=== PATIENT | male | born 1960 | race Caucasian/White ===

== ENCOUNTER 2024-02-09 04:17 | Inpatient (IN) ==
[2024-02-09] MEDS: cefTRIAXone 2 gm/50 mL D5W 2 GM/50 ML BAG IV ONE (04:49)
[2024-02-09 04:56] LABS: ABS Lymphocytes 0.6 10^3/uL (1.0-4.8); ABS Monocytes 0.2 10^3/uL (0.0-1.1); Eosinophil % 0.1 %; Hematocrit 42.4 % (38-53); Hemoglobin 14.5 g/dL (13.2-16.3); Lymphocyte % 8.3 %; Mean Corpuscular Hemoglobin 32.6 pg (27-33); Mean Corpuscular Hgb Conc 34.3 g/dL (31-36); Mean Corpuscular Volume 95.1 fL (80-97); Platelet Count 197 10^3/uL (150-450); Red Blood Count 4.45 10^6/uL (4.06-5.63); White Blood Count 7.9 10^3/uL (3.6-10.2)
[2024-02-09 05:07] LABS: Activated Partial Thrombo Time 24.5 seconds (26.0-38.0); INR 1.14 (0.83-1.13)
[2024-02-09 05:22] LABS: High Sens Troponin Baseline 15 pg/mL (<20)
[2024-02-09 05:36] LABS: ALT 18 U/L (7-52); Albumin 3.8 g/dL (3.2-5.2); Albumin/Globulin Ratio 1.2 (1-3); Alkaline Phosphatase 56 U/L (35-149); Anion Gap 8 mmol/L (2-16); Blood Urea Nitrogen 24 mg/dL (6-24); CO2 Carbon Dioxide 23 mmol/L (22-32); Calcium 8.4 mg/dL (8.6-10.3); Chloride 105 mmol/L (101-111); Creatinine, Serum 1.37 mg/dL (0.67-1.17); Globulin 3.2 g/dL (2-4); Glucose 111 mg/dL (70-100); Sodium 136 mmol/L (135-145); Total Bilirubin 0.7 mg/dL (0.2-1.0); eGFR CKD-EPI 58.3 (>60)
[2024-02-09] MEDS: Lactated Ringers 1000 ml BAG 1,000 ML IV ONE ×2 (05:42→16:42)
[2024-02-09 05:52] LABS: Urine Appearance Clear; Urine Bilirubin Negative (Negative); Urine Blood Negative (Negative); Urine Color Yellow; Urine Glucose Negative (Negative); Urine Ketones Negative (Negative); Urine Nitrite Negative (Negative); Urine Protein Trace (Negative); Urine Specific Gravity 1.016 (1.002-1.030); Urine Urobilinogen Negative (Negative); Urine pH 6.5 (5.0-8.0)
[2024-02-09 06:21] LABS: High Sensitivity Troponin 1 Hr 15 pg/mL (<20)
[2024-02-09 06:23] LABS: AST Redraw 18 U/L (13-39); Potassium Redraw 3.6 mmol/L (3.5-5.0)
[2024-02-09] MEDS: Morphine 10 MG/ML VIAL (1 ml) IV ONE (07:27)
[2024-02-09] MEDS: Lactated Ringers SEPSIS* BAG 2,190 ML IV ONE (07:47)
[2024-02-09] MEDS: Norepinephrine 4 MG/250mL D5W 4,000 MCG/250 ML BAG IV SCH (10:26)
[2024-02-09] MEDS: Vancomycin 2,000 MG in NS 0.9% 500 ml BAG 500 ML IVPB ONE (10:26)
[2024-02-09] MEDS ORDERED: Morphine 2 MG/ML SYRINGE IV PRN (10:30)
[2024-02-09] MEDS ORDERED: Vancomycin per Pharmacy 1 EA NOTE FOLLOW UP SCH (11:00)
[2024-02-09 11:38] LABS: Magnesium 1.5 mg/dL (1.9-2.7); Phosphorus < 1.0 mg/dL (2.5-5.0)
[2024-02-09] MEDS: Enoxaparin 60 MG/0.6 ML SYR SUBCUT SCH (12:13)
[2024-02-09] MEDS: Hydrocortisone INJ 100 MG/2ML 2 ML VIAL IV ONE (12:13)
[2024-02-09] MEDS: Aspirin EC 81 mg TAB.EC (enteric coated) PO SCH (12:14)
[2024-02-09] MEDS: Potassium & Sodium Phos 250 mg = 1 PACKET PO ONE ×2 (12:28→22:53)
[2024-02-09] MEDS ORDERED: Sulfur Hexaflouride MICROSPHR 25 MG VIAL ONE (12:50)
[2024-02-09 13:16] LABS: Creatine Kinase 130 U/L (10-223)
[2024-02-09] MEDS: Magnesium Sulf 4 GM/100 ML IV 4,000 MG/100 ML BAG IVPB ONE (13:16)
[2024-02-09] MEDS: Sulfur Hexaflouride MICROSPHR 25 MG VIAL IV ONE (13:19)
[2024-02-09] MEDS: Potassium Phosphate IV 30 MMOL in NS 0.9% 250 ml 250 ML IVPB ONE (13:34)
[2024-02-09] MEDS: Clindamycin 900 MG/D5W BAG 900 MG/50 ML BAG IVPB SCH (16:50)
[2024-02-09] MEDS: Lactated Ringers 1000 ml BAG 1,000 ML IV SCH (17:57)
[2024-02-09 19:27] LABS: ABS Monocytes 0.6 10^3/uL (0.0-1.1); ABS Neutrophils 14.4 10^3/uL (1.5-7.6); ABS Nucleated RBC 0.01 10^3/ul; Hematocrit 38.2 % (38-53); Hemoglobin 12.7 g/dL (13.2-16.3); Lymphocyte % 6.3 %; Mean Corpuscular Hemoglobin 32.2 pg (27-33); Mean Corpuscular Hgb Conc 33.4 g/dL (31-36); Mean Corpuscular Volume 96.4 fL (80-97); Mean Platelet Volume 7.8 fL (7.5-11.2); Platelet Count 195 10^3/uL (150-450); Red Blood Count 3.96 10^6/uL (4.06-5.63); Red Cell Distribution Width 14.3 % (12-17)
[2024-02-09] MEDS ORDERED: Hydrocortisone INJ 100 MG/2ML 2 ML VIAL IV SCH (20:00)
[2024-02-09 20:08] LABS: Calcium 7.8 mg/dL (8.6-10.3); Creatinine, Serum 2.63 mg/dL (0.67-1.17); Magnesium 1.9 mg/dL (1.9-2.7); Potassium 5.2 mmol/L (3.5-5.0); eGFR CKD-EPI 26.7 (>60)
[2024-02-09] MEDS: fentaNYL 100 mcg/2 ml 50 MCG/ML VIAL IV SLOW PU PRN (21:55)
[2024-02-09] MEDS: Vancomycin 1,500 MG in NS 0.9% 250 ml 250 ML IVPB SCH (23:08)
[2024-02-09] MEDS: Magnesium Sulfate IV 1GM/100ML 1 GM/100 ML BAG IV ONE (23:08)
[2024-02-10 04:46] LABS: Hematocrit 38.3 % (38-53); Hemoglobin 12.6 g/dL (13.2-16.3); Mean Corpuscular Hemoglobin 31.1 pg (27-33); Mean Corpuscular Hgb Conc 32.8 g/dL (31-36); Mean Platelet Volume 7.6 fL (7.5-11.2); Platelet Count 182 10^3/uL (150-450); Red Blood Count 4.03 10^6/uL (4.06-5.63); Red Cell Distribution Width 14.3 % (12-17); White Blood Count 21.3 10^3/uL (3.6-10.2)
[2024-02-10 05:21] LABS: C Reactive Protein 311.35 mg/L (<8.01); Calcium 7.7 mg/dL (8.6-10.3); Creatinine, Serum 2.78 mg/dL (0.67-1.17); Magnesium 2.1 mg/dL (1.9-2.7); Phosphorus 5.3 mg/dL (2.5-5.0); Potassium 5.3 mmol/L (3.5-5.0); eGFR CKD-EPI 24.9 (>60)
[2024-02-10] MEDS: cefTRIAXone 2 gm/50 mL D5W 2 GM/50 ML BAG IV SCH ×2 (05:56→17:46)
[2024-02-10 06:53] LABS: ABS Lymphocytes 1.2 10^3/uL (1.0-4.8); ABS Monocytes 0.9 10^3/uL (0.0-1.1); ABS Neutrophils 19.2 10^3/uL (1.5-7.6); Eosinophil % 0.1 %; Lymphocyte % 5.8 %
[2024-02-10 06:54] LABS: Anisocytosis 1+; Toxic Granulation 3+
[2024-02-10] MEDS: Lactated Ringers 1000 ml BAG 1,000 ML IV SCH (10:06)
[2024-02-10 12:28] LABS: PCO2 Arterial 35 mmHg (35-45); PO2 Arterial 151 mmHg (80-100)
[2024-02-10] MEDS: Hydrocortisone INJ 100 MG/2ML 2 ML VIAL IV SCH (12:39)
[2024-02-11 07:25] LABS: Hematocrit 35.1 % (38-53); Hemoglobin 11.9 g/dL (13.2-16.3); Mean Corpuscular Hemoglobin 32.2 pg (27-33); Mean Corpuscular Hgb Conc 33.8 g/dL (31-36); Mean Corpuscular Volume 95.3 fL (80-97); Mean Platelet Volume 7.8 fL (7.5-11.2); Platelet Count 132 10^3/uL (150-450); Red Blood Count 3.68 10^6/uL (4.06-5.63); Red Cell Distribution Width 14.4 % (12-17); White Blood Count 18.8 10^3/uL (3.6-10.2)
[2024-02-11 08:00] LABS: Calcium 7.4 mg/dL (8.6-10.3); Creatinine, Serum 1.86 mg/dL (0.67-1.17); Magnesium 2.3 mg/dL (1.9-2.7); Phosphorus 3.2 mg/dL (2.5-5.0); Potassium 4.6 mmol/L (3.5-5.0); Vancomycin Random 11.3 mcg/mL; eGFR CKD-EPI 40.4 (>60)
[2024-02-11 08:02] LABS: ABS Lymphocytes 0.7 10^3/uL (1.0-4.8); ABS Monocytes 0.6 10^3/uL (0.0-1.1); ABS Neutrophils 17.4 10^3/uL (1.5-7.6); ABS Nucleated RBC 0.01 10^3/ul; Lymphocyte % 3.7 %
[2024-02-11 08:27] LABS: C Reactive Protein 438.74 mg/L (<8.01)
[2024-02-11] MEDS: Vancomycin Random Level NOTE FOLLOW UP ONE (09:11)
[2024-02-11] MEDS ORDERED: Vancomycin Trough Check NOTE FOLLOW UP ONE (09:30)
[2024-02-11] MEDS ORDERED: Hydrocortisone INJ 100 MG/2ML 2 ML VIAL IV SCH (10:00)
[2024-02-11] MEDS: Lactated Ringers 1000 ml BAG 1,000 ML IV SCH ×2 (12:17→21:01)
[2024-02-11] MEDS: Vancomycin 2,000 MG in NS 0.9% 500 ml BAG 500 ML IVPB ONE (13:30)
[2024-02-11] MEDS: Hydrocortisone INJ 100 MG/2ML 2 ML VIAL IV SCH (13:30)
[2024-02-12] MEDS: Vancomycin Random Level NOTE FOLLOW UP ONE (06:56)
[2024-02-12 08:22] LABS: Hematocrit 31.9 % (38-53); Hemoglobin 10.7 g/dL (13.2-16.3); Mean Corpuscular Hemoglobin 31.9 pg (27-33); Mean Corpuscular Hgb Conc 33.7 g/dL (31-36); Mean Corpuscular Volume 94.5 fL (80-97); Mean Platelet Volume 8.6 fL (7.5-11.2); Platelet Count 140 10^3/uL (150-450); Red Blood Count 3.37 10^6/uL (4.06-5.63); Red Cell Distribution Width 14.4 % (12-17)
[2024-02-12 08:39] LABS: C Reactive Protein 357.42 mg/L (<8.01); Calcium 7.6 mg/dL (8.6-10.3); Creatinine, Serum 1.71 mg/dL (0.67-1.17); Phosphorus 2.6 mg/dL (2.5-5.0); Potassium 3.9 mmol/L (3.5-5.0); Vancomycin Random 10.7 mcg/mL; eGFR CKD-EPI 44.7 (>60)
[2024-02-12 08:57] LABS: ABS Eosinophils 0.1 10^3/uL (0.0-0.5); ABS Lymphocytes 1.1 10^3/uL (1.0-4.8); ABS Monocytes 0.9 10^3/uL (0.0-1.1); ABS Neutrophils 11.9 10^3/uL (1.5-7.6); ABS Nucleated RBC 0.02 10^3/ul; Eosinophil % 0.4 %; Lymphocyte % 7.7 %; Nucleated Red Blood Cells % 0.2 %/100WBC (0.0-0.8)
[2024-02-13 06:55] LABS: Hematocrit 32.8 % (38-53); Hemoglobin 11.2 g/dL (13.2-16.3); Mean Corpuscular Hemoglobin 32.3 pg (27-33); Mean Corpuscular Hgb Conc 34.2 g/dL (31-36); Mean Corpuscular Volume 94.6 fL (80-97); Mean Platelet Volume 8.1 fL (7.5-11.2); Platelet Count 184 10^3/uL (150-450); Red Blood Count 3.47 10^6/uL (4.06-5.63); Red Cell Distribution Width 14.3 % (12-17); White Blood Count 11.7 10^3/uL (3.6-10.2)
[2024-02-13 07:08] LABS: Calcium 7.7 mg/dL (8.6-10.3); Creatinine, Serum 1.68 mg/dL (0.67-1.17); Magnesium 2.5 mg/dL (1.9-2.7); Potassium 4.3 mmol/L (3.5-5.0); eGFR CKD-EPI 45.7 (>60)
[2024-02-13 08:15] LABS: ABS Eosinophils 0.1 10^3/uL (0.0-0.5); ABS Lymphocytes 1.1 10^3/uL (1.0-4.8); ABS Monocytes 1.5 10^3/uL (0.0-1.1); ABS Neutrophils 8.9 10^3/uL (1.5-7.6); ABS Nucleated RBC 0.03 10^3/ul; Eosinophil % 1.1 %; Lymphocyte % 9.5 %; Nucleated Red Blood Cells % 0.3 %/100WBC (0.0-0.8); RBC Morphology Normal (Normal)
[2024-02-13] MEDS: Furosemide 20 mg/2 ml IV VIAL IV SLOW PU ONE (19:37)
[2024-02-14 09:08] LABS: Hematocrit 37.5 % (38-53); Hemoglobin 12.9 g/dL (13.2-16.3); Mean Corpuscular Hemoglobin 32.3 pg (27-33); Mean Corpuscular Hgb Conc 34.4 g/dL (31-36); Mean Corpuscular Volume 93.9 fL (80-97); Mean Platelet Volume 8.2 fL (7.5-11.2); Platelet Count 238 10^3/uL (150-450); Red Blood Count 3.99 10^6/uL (4.06-5.63); Red Cell Distribution Width 15.1 % (12-17); White Blood Count 13.9 10^3/uL (3.6-10.2)
[2024-02-14 09:49] LABS: Calcium 7.8 mg/dL (8.6-10.3); Creatinine, Serum 1.46 mg/dL (0.67-1.17); Potassium 4.4 mmol/L (3.5-5.0)
[2024-02-14 10:27] LABS: ABS Basophils 0.1 10^3/uL (0.0-0.1); ABS Eosinophils 0.2 10^3/uL (0.0-0.5); ABS Lymphocytes 1.4 10^3/uL (1.0-4.8); ABS Monocytes 1.1 10^3/uL (0.0-1.1); ABS Neutrophils 11.1 10^3/uL (1.5-7.6); ABS Nucleated RBC 0.06 10^3/ul; Eosinophil % 1.2 %; Lymphocyte % 10.1 %; Nucleated Red Blood Cells % 0.4 %/100WBC (0.0-0.8); RBC Morphology Normal (Normal)
[2024-02-14] MEDS: Furosemide 20 mg/2 ml IV VIAL IV ONE (11:54)
[2024-02-14 15:02] LABS: C Reactive Protein 206.77 mg/L (<8.01)
[2024-02-15 09:27] LABS: Hematocrit 38.3 % (38-53); Mean Corpuscular Hemoglobin 32.1 pg (27-33); Mean Corpuscular Volume 94.4 fL (80-97); Mean Platelet Volume 7.8 fL (7.5-11.2); Platelet Count 255 10^3/uL (150-450); Red Blood Count 4.05 10^6/uL (4.06-5.63); Red Cell Distribution Width 15.3 % (12-17); White Blood Count 13.7 10^3/uL (3.6-10.2)
[2024-02-15 09:57] LABS: Calcium 7.7 mg/dL (8.6-10.3); Creatinine, Serum 1.48 mg/dL (0.67-1.17); Potassium 4.1 mmol/L (3.5-5.0); eGFR CKD-EPI 53.2 (>60)
[2024-02-15 14:07] LABS: ABS Basophils 0.1 10^3/uL (0.0-0.1); ABS Eosinophils 0.3 10^3/uL (0.0-0.5); ABS Lymphocytes 1.7 10^3/uL (1.0-4.8); ABS Monocytes 0.5 10^3/uL (0.0-1.1); ABS Nucleated RBC 0.01 10^3/ul; Eosinophil % 2.4 %; Lymphocyte % 12.7 %; Nucleated Red Blood Cells % 0.1 %/100WBC (0.0-0.8); RBC Morphology Normal (Normal)
[2024-02-15] MEDS: Furosemide 20 mg/2 ml IV VIAL IV ONE (15:39)
[2024-02-16 05:56] LABS: Hematocrit 36.3 % (38-53); Hemoglobin 12.1 g/dL (13.2-16.3); Mean Corpuscular Hemoglobin 31.2 pg (27-33); Mean Corpuscular Hgb Conc 33.3 g/dL (31-36); Mean Corpuscular Volume 93.9 fL (80-97); Mean Platelet Volume 7.5 fL (7.5-11.2); Platelet Count 252 10^3/uL (150-450); Red Blood Count 3.87 10^6/uL (4.06-5.63); Red Cell Distribution Width 15.3 % (12-17); White Blood Count 13.4 10^3/uL (3.6-10.2)
[2024-02-16 06:13] LABS: Calcium 7.6 mg/dL (8.6-10.3); Creatinine, Serum 1.36 mg/dL (0.67-1.17); Potassium 4.1 mmol/L (3.5-5.0); eGFR CKD-EPI 58.8 (>60)
[2024-02-16 07:46] LABS: ABS Basophils 0.1 10^3/uL (0.0-0.1); ABS Eosinophils 0.4 10^3/uL (0.0-0.5); ABS Lymphocytes 1.7 10^3/uL (1.0-4.8); ABS Monocytes 0.9 10^3/uL (0.0-1.1); ABS Neutrophils 10.1 10^3/uL (1.5-7.6); ABS Nucleated RBC 0.01 10^3/ul; Anisocytosis 1+; Lymphocyte % 13.1 %; Polychromasia 1+; Tear Drop Cells 1+
[2024-02-16] MEDS: Furosemide 20 mg/2 ml IV VIAL IV ONE (10:57)
[2024-02-17 07:31] LABS: Anion Gap 7 mmol/L (2-16); Blood Urea Nitrogen 32 mg/dL (6-24); CO2 Carbon Dioxide 28 mmol/L (22-32); Calcium 8.3 mg/dL (8.6-10.3); Chloride 103 mmol/L (101-111); Creatinine, Serum 1.22 mg/dL (0.67-1.17); Glucose 86 mg/dL (70-100); Sodium 138 mmol/L (135-145)
[2024-02-17 07:34] LABS: Potassium, Whole Blood 4.6 mmol/L (3.4-4.5)
[2024-02-17] MEDS: Furosemide 40 mg/4 ml IV VIAL IV ONE (10:02)
[2024-02-18 06:06] LABS: Hematocrit 36.1 % (38-53); Hemoglobin 12.1 g/dL (13.2-16.3); Mean Corpuscular Hemoglobin 31.8 pg (27-33); Mean Corpuscular Hgb Conc 33.6 g/dL (31-36); Mean Corpuscular Volume 94.6 fL (80-97); Mean Platelet Volume 7.5 fL (7.5-11.2); Platelet Count 313 10^3/uL (150-450); Red Blood Count 3.81 10^6/uL (4.06-5.63); Red Cell Distribution Width 15.1 % (12-17); White Blood Count 11.3 10^3/uL (3.6-10.2)
[2024-02-18 06:54] LABS: Calcium 7.9 mg/dL (8.6-10.3); Creatinine, Serum 1.31 mg/dL (0.67-1.17); Magnesium 1.9 mg/dL (1.9-2.7); Potassium 4.8 mmol/L (3.5-5.0); eGFR CKD-EPI 61.5 (>60)
[2024-02-18 08:00] LABS: ABS Eosinophils 0.3 10^3/uL (0.0-0.5); ABS Lymphocytes 1.7 10^3/uL (1.0-4.8); ABS Monocytes 0.8 10^3/uL (0.0-1.1); ABS Neutrophils 8.4 10^3/uL (1.5-7.6); Eosinophil % 2.5 %; Lymphocyte % 15.4 %
[2024-02-18 08:01] LABS: RBC Morphology Normal (Normal)
[2024-02-19 10:30] VITALS: BP 142/70
[2024-02-19 10:43] LABS: Hematocrit 36.2 % (38-53); Hemoglobin 12.3 g/dL (13.2-16.3); Mean Corpuscular Hemoglobin 32.1 pg (27-33); Mean Corpuscular Volume 94.5 fL (80-97); Mean Platelet Volume 7.3 fL (7.5-11.2); Platelet Count 389 10^3/uL (150-450); Red Blood Count 3.83 10^6/uL (4.06-5.63); Red Cell Distribution Width 15.1 % (12-17); White Blood Count 9.8 10^3/uL (3.6-10.2)
[2024-02-19 10:53] LABS: Activated Partial Thrombo Time 33.5 seconds (26.0-38.0); INR 1.18 (0.83-1.13)
[2024-02-19 11:00] LABS: C Reactive Protein 67.5 mg/L (<8.01); Calcium 8.1 mg/dL (8.6-10.3); Creatinine, Serum 1.24 mg/dL (0.67-1.17); Potassium 4.6 mmol/L (3.5-5.0); eGFR CKD-EPI 65.7 (>60)
[2024-02-19 12:30] LABS: ABS Basophils 0.1 10^3/uL (0.0-0.1); ABS Eosinophils 0.2 10^3/uL (0.0-0.5); ABS Lymphocytes 1.5 10^3/uL (1.0-4.8); ABS Monocytes 0.7 10^3/uL (0.0-1.1); ABS Neutrophils 7.4 10^3/uL (1.5-7.6); Eosinophil % 2.2 %; Lymphocyte % 15.6 %
== END 2024-02-19 14:50 | disposition home or self-care (01) | DRG 720 ==
LOC: EDHOLD 04:17 → ED 04:17 → ICU 11:17 → SUATTDRO 14:17 → MED 02-11 22:22
PROVIDERS: ADMIT Internal Medicine Pulmonary Disease; ATTEND Internal Medicine